=== PATIENT | female | born 1950 | race Hispanic/Latino ===

== ENCOUNTER 2019-01-01 21:34 | Emergency (ER) | payer MEDICARE, OTHER ==
[2019-01-01 22:36] VITALS: BP 132/76; PULSE 97; RESP 18; O2SAT 98
[2019-01-01 22:54] VITALS: TEMP 98.4
--- NOTE | 2019-01-01 22:56 | ED PDOC ---
HPI: Back History Per: Patient Additional Complaint(s): Pt. states this afternoon she developed a gradual onset L sided buttock pain radiating down the posterior L leg. Reports pain is worsened with movement and when sitting down. Further states she took Tylenol at 1500 today with minimal relief and has not taken any mother meds to help with pain. Denies fever, chills, incontinence, dysuria, hematuria, saddle paresthesias, N/V, abd pain, back pain, trauma, weakness, rash. <Fish Matthews - Last Filed: 01/02/19 00:36> <Jo Mei - Last Filed: 01/03/19 11:01> Time Seen by Provider: 01/01/19 22:38 Chief Complaint (Nursing): Back Pain Past Medical History Reviewed: Historical Data, Nursing Documentation, Vital Signs Vital Signs: Last Vital Signs Temp 100.0 F H 01/01/19 22:34 Pulse 97 H 01/01/19 22:34 Resp 18 01/01/19 22:34 BP 132/76 01/01/19 22:34 Pulse Ox 98 01/01/19 22:34 - Surgical History Surgical History: No Surg Hx - Family History Family History: States: No Known Family Hx <Fish Matthews - Last Filed: 01/02/19 00:36> Vital Signs: Last Vital Signs Temp 98.4 F 01/01/19 22:54 Pulse 97 H 01/01/19 22:34 Resp 18 01/01/19 22:34 BP 132/76 01/01/19 22:34 Pulse Ox 98 01/02/19 00:48 <Jo Mei - Last Filed: 01/03/19 11:01> - Home Medications Home Medications: Ambulatory Orders Medication Instructions Recorded Cyclobenzaprine [Cyclobenzaprine 10 mg PO Q8 PRN #10 tab 01/02/19 HCl] Naproxen [Naprosyn] 500 mg PO BID PRN #10 tab 01/02/19 - Allergies Allergies/Adverse Reactions: Allergies Allergy/AdvReac Type Severity Reaction Status Date / Time No Known Allergies Allergy Verified 01/01/19 22:47 Review of Systems ROS Statement: Except As Marked, All Systems Reviewed And Found Negative <Fish Matthews - Last Filed: 01/02/19 00:36> Physical Exam - Physical Exam Appears: Positive for: Well, Non-toxic, No Acute Distress Skin: Positive for: Normal Color, Warm. Negative for: Rash Eye Exam: Positive for: Normal appearance Pulses-Dorsalis Pedis (L): 2+ Pulses-Dorsalis Pedis (R): 2+ Gastrointestinal/Abdominal: Positive for: Normal Exam, Bowel Sounds, Soft. Negative for: Tenderness Back: Positive for: Normal Inspection. Negative for: L CVA Tenderness, R CVA Tenderness, Vertebral Tenderness Rectal: Positive for: Other Extremity: Positive for: Other (L buttock tenderness; SLR positive in L leg at approximately 30-35 degrees; b/l lower extremity strenght 5/5). Negative for: Pedal Edema (b/l), Calf Tenderness (b/l) Neurologic/Psych: Positive for: Alert, Oriented (x3). Negative for: Aphasia, Facial Droop <Fish Matthews - Last Filed: 01/02/19 00:36> - ECG O2 Sat by Pulse Oximetry: 98 - Radiology X-Ray: Interpreted by Me (L hip/pelvic x-ray ordered.) X-Ray Interpretation: Other (DJD, no fx) - Progress ED Course And Treament: Temp 100 orally in triage. Pt. reports no fever or chills. Repeat temp: 98.4 orally. Toradol 30mg IM, flexeril 10mg PO, lidoderm patch, L hip/pelvic x-dasia ord ered. Condition: Re-examined, Improved <Fish Matthews E - Last Filed: 01/02/19 00:36> - Laboratory Results Lab Results: Urine Color Yellow (YELLOW) 01/01/19 23:40 Urine Clarity Clear (Clear) 01/01/19 23:40 Urine pH 5.0 (5.0-8.0) 01/01/19 23:40 Ur Specific [place] 1.021 (1.003-1.030) 01/01/19 23:40 Urine Protein Negative mg/dL (NEGATIVE) 01/01/19 23:40 Urine Glucose (UA) Neg mg/dL (NEGATIVE) 01/01/19 23:40 Urine Ketones 20 mg/dL (NEGATIVE) 01/01/19 23:40 Urine Blood Small (NEGATIVE) 01/01/19 23:40 Urine Nitrate Negative (NEGATIVE) 01/01/19 23:40 Urine Bilirubin Negative (NEGATIVE) 01/01/19 23:40 Urine Urobilinogen 0.2-1.0 mg/dL (0.2-1.0) 01/01/19 23:40 Ur Leukocyte Esterase Trace Ruddy/uL (Negative) 01/01/19 23:40 Urine RBC (Auto) 2 /hpf (0-3) 01/01/19 23:40 Urine Microscopic WBC 2 /hpf (0-5) 01/01/19 23:40 Hyaline Casts 0-2 /hpf (0-2) 01/01/19 23:40 <Jo Mei - Last Filed: 01/03/19 11:01> Disposition - Patient ED Disposition Is Patient to be Admitted: Transfer of Care (Signed out to David RAMIREZ pending UA results and final disposition.) - Disposition Disposition Time: 00:34 <Fish Matthews - Last Filed: 01/02/19 00:36> <Jo Mei - Last Filed: 01/03/19 11:01> - Clinical Impression Clinical Impression: Hip pain - Disposition Condition: IMPROVED Additional Instructions: FOLLOW UP WITH YOUR DOCTOR FOR FURTHER EVALUATION RETURN TO ED IMMEDIATELY IF SYMPTOMS WORSEN KASSI PECK, thank you for letting us take care of you today. Your provider was Elva Willoughby MD and you were treated for B/L LEG PAIN. The emergency medical care you received today was directed at your acute symptoms. If you were prescribed any medication, please fill it and take as directed. It may take several days for your symptoms to resolve. Return to the Emergency Department if your symptoms worsen, do not improve, or if you have any other problems. Please contact your doctor or call one of the physicians/clinics you have been referred to that are listed on the Patient Visit Information form that is included in your discharge packet. Bring any paperwork you were given at discharge with you along with any medications you are taking to your follow up visit. Our treatment cannot replace ongoing medical care by a primary care provider outside of the emergency department. Thank you for allowing the [employer] [facility] [employer] team to be part of your care today. If you had an X-Ray or CT scan: A Radiologist will review the ED reading if any change in treatment is needed we will contact you. If you had a blood, urine, or wound culture: It will take several days for the results, if any change in treatment is needed we will contact you. If you had an STI test: It will take 48 hours for the results. Please call after 1 week if you have not heard back. Prescriptions: Cyclobenzaprine [Cyclobenzaprine HCl] 10 mg PO Q8 PRN #10 tab PRN Reason: Muscle Spasm Naproxen [Naprosyn] 500 mg PO BID PRN #10 tab PRN Reason: Pain Instructions: Hip Pain (DC) Forms: [employer] (Telugu)
[2019-01-01] MEDS ORDERED: Lidocaine 5% Patch TD ONE (23:06)
[2019-01-01] MEDS: Lidocaine 5% Patch TD STA (23:13)
[2019-01-02 00:14] LABS: URINE BILIRUBIN NEGATIVE (NEGATIVE); URINE BLOOD SMALL (NEGATIVE); URINE CLARITY CLEAR (Clear); URINE COLOR YELLOW (YELLOW); URINE GLUCOSE (UA) NEG (NEGATIVE); URINE HYALINE CAST 0-2 /hpf (0-2); URINE LEUKOCYTE ESTERASE TRACE Leu/uL (Negative); URINE PROTEIN NEGATIVE (NEGATIVE); URINE UROBILINOGEN 0.2-1.0 mg/dL (0.2-1.0)
--- NOTE | 2019-01-02 00:48 | ED PDOC ---
- Laboratory Results Lab Results: Urine Color Yellow (YELLOW) 01/01/19 23:40 Urine Clarity Clear (Clear) 01/01/19 23:40 Urine pH 5.0 (5.0-8.0) 01/01/19 23:40 Ur Specific [place] 1.021 (1.003-1.030) 01/01/19 23:40 Urine Protein Negative mg/dL (NEGATIVE) 01/01/19 23:40 Urine Glucose (UA) Neg mg/dL (NEGATIVE) 01/01/19 23:40 Urine Ketones 20 mg/dL (NEGATIVE) 01/01/19 23:40 Urine Blood Small (NEGATIVE) 01/01/19 23:40 Urine Nitrate Negative (NEGATIVE) 01/01/19 23:40 Urine Bilirubin Negative (NEGATIVE) 01/01/19 23:40 Urine Urobilinogen 0.2-1.0 mg/dL (0.2-1.0) 01/01/19 23:40 Ur Leukocyte Esterase Trace Ruddy/uL (Negative) 01/01/19 23:40 Urine RBC (Auto) 2 /hpf (0-3) 01/01/19 23:40 Urine Microscopic WBC 2 /hpf (0-5) 01/01/19 23:40 Hyaline Casts 0-2 /hpf (0-2) 01/01/19 23:40 - ECG O2 Sat by Pulse Oximetry: 98 - Progress ED Course And Treament: Case endorsed to technical writer and editor from Byron RAMIREZ pending urine Patient educated on findings, discharged with naproxen and flexeril as per previous provider discussed Advised follow up PMD within 2-3 days Return precautions given Disposition - Clinical Impression Clinical Impression: Hip pain - POA Present On Arrival: None - Disposition Disposition: Routine/Home Disposition Time: 00:48 Condition: IMPROVED Additional Instructions: FOLLOW UP WITH YOUR DOCTOR FOR FURTHER EVALUATION RETURN TO ED IMMEDIATELY IF SYMPTOMS WORSEN KASSI PECK, thank you for letting us take care of you today. Your provider was Elva Willoughby MD and you were treated for B/L LEG PAIN. The emergency medical care you received today was directed at your acute symptoms. If you were prescribed any medication, please fill it and take as directed. It may take several days for your symptoms to resolve. Return to the Emergency Department if your symptoms worsen, do not improve, or if you have any other problems. Please contact your doctor or call one of the physicians/clinics you have been referred to that are listed on the Patient Visit Information form that is included in your discharge packet. Bring any paperwork you were given at discharge with you along with any medications you are taking to your follow up visit. Our treatment cannot replace ongoing medical care by a primary care provider outside of the emergency department. Thank you for allowing the [facility] team to be part of your care today. If you had an X-Ray or CT scan: A Radiologist will review the ED reading if any change in treatment is needed we will contact you. If you had a blood, urine, or wound culture: It will take several days for the results, if any change in treatment is needed we will contact you. If you had an STI test: It will take 48 hours for the results. Please call after 1 week if you have not heard back. Prescriptions: Cyclobenzaprine [Cyclobenzaprine HCl] 10 mg PO Q8 PRN #10 tab PRN Reason: Muscle Spasm Naproxen [Naprosyn] 500 mg PO BID PRN #10 tab PRN Reason: Pain Instructions: Hip Pain (DC) Forms: [employer] (Divehi)
--- NOTE | 2019-01-02 13:17 | RAD ---
PROCEDURE: Left Hip X-ray Radiographs. HISTORY: pain COMPARISON: None. FINDINGS: BONES: Symmetric degenerative changes are seen at the bilateral hip and sacroiliac joints without fracture throughout the pelvic ring or the left hip joint. No destructive bony lesion is identified throughout. Diffuse osteopenia suggests osteoporosis. JOINTS: No subluxation or dislocation. Degenerative changes as discussed above. SOFT TISSUES: Normal. OTHER FINDINGS: None. IMPRESSION: No acute fracture or dislocation left hip joint. 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
== END 2019-01-02 00:53 | disposition home or self-care (01) ==
LOC: H.ER 21:34
DX: M25.552 Pain in left hip (principal)
CPT/HCPCS: 73502; 81003; 96372; 99283; J1885